=== PATIENT | male | born 1970 | race African-American/Black ===

== ENCOUNTER 2018-03-18 13:58 | Observation (INO) ==
--- NOTE | 2018-03-18 15:46 | ED ---
HPI General Chief complaint: Chest Pain Stated complaint: Chest Pain Time Seen by Provider: 03/18/18 15:35 Source: patient Mode of arrival: ambulatory Limitations: no limitations History of Present Illness HPI narrative: 47-year-old male with history of hypertension, seizure disorder on Dilantin, presents emergency department for evaluation of left-sided chest pain, acute onset about 4 hours ago. Patient states it waxes and wanes. There are no definite exacerbating or alleviating factors, however he states seems to happen more when he is walking. It does not radiate anywhere. He has associated shortness of breath and mild nausea. He was diaphoretic and lightheaded as well. States this does not happen him before. He has not been taking his Dilantin or his clonidine regularly. Has no other symptoms to report. Related Data Home Medications Medication Instructions Recorded Confirmed albuterol sulfate [Ventolin HFA] 2 puff INHALATION Q6H PRN 03/18/18 03/18/18 clonidine HCl 0.2 mg PO DAILY 03/18/18 03/18/18 duloxetine [Cymbalta] 60 mg PO DAILY 03/18/18 03/18/18 phenytoin sodium extended 30 mg PO Q12H 03/18/18 03/18/18 [Dilantin] Allergies Allergy/AdvReac Type Severity Reaction Status Date / Time No Known Allergies Allergy Unverified 03/18/18 15:50 Review of Systems Except as stated in HPI: all other systems reviewed are negative PMFSH History History Provided By: Patient Medical History Medical History Anxiety (Acute) Epilepsy (Acute) HTN (hypertension) (Acute) Seizure (Acute) Surgical History Surgical History H/O foot surgery (Acute) Social History Social History Substance History: No History of Abuse Second Hand Smoke Exposure: No Smoking Status: Former smoker How Often Do You Have a Drink Containing Alcohol: Monthly or less Recent Travel in [place] within the Last 8 Weeks: No Recent Out of Country Travel within the Last 8 Weeks: No Exam Narrative Exam Narrative: GENERAL: Well-nourished male patient, in no acute distress. SKIN: Focused skin assessment warm/dry. HEAD: Atraumatic. Normocephalic. EYES: Pupils equal and round. No scleral icterus. No injection or drainage. ENT: No nasal bleeding or discharge. Mucous membranes pink and moist. NECK: Trachea midline. No JVD. CARDIOVASCULAR: Regular rate and rhythm. RESPIRATORY: No accessory muscle use. Diminished, likely due to girth, otherwise clear to auscultation. Breath sounds equal bilaterally. GASTROINTESTINAL: Abdomen soft, non-tender, nondistended. Hepatic and splenic margins not palpable. MUSCULOSKELETAL: No obvious deformities. No clubbing. No cyanosis. No edema. NEUROLOGICAL: Awake and alert. No obvious cranial nerve deficits. Motor grossly within normal limits. Normal speech. PSYCHIATRIC: Appropriate mood and affect; insight and judgment normal. Course Initial Documented Vital Signs Temperature 98.5 F 03/18/18 14:29 Pulse Rate 94 H 03/18/18 14:29 Respiratory Rate 18 03/18/18 14:29 Blood Pressure 173/102 H 03/18/18 14:29 Pulse Oximetry 97 03/18/18 14:29 Last Documented Vital Signs Temperature 98.0 F 03/19/18 07:11 Pulse Rate 87 03/19/18 07:11 Respiratory Rate 18 03/19/18 07:11 Blood Pressure 164/100 H 03/19/18 07:11 Pulse Oximetry 98 03/19/18 07:11 Medical Decision Making RY Attestation RY supervised visit: Yes Attestation: I, Dr. Holland, have reviewed the advance practice practitioner's documentation and am in agreement, met with the patient face to face, made the diagnosis, and the medical decision making was done by me. *My assessment and Findings: She came in for chest pain evaluation. He does have risk factors., Was significantly hypertensive. Workup here does not yield anything emergent. He will be a 23 hour observation in the chest pain center to rule out cardiac cause of his symptoms. MDM Narrative Medical decision making narrative: 47-year-old male presents emergency department for evaluation of chest pain, acute onset 4 hours ago. Patient appears well. He is quite hypertensive and he did not take his clonidine today. He will be given a dose of this year. Patient will also be bolused with Dilantin as he is subtherapeutic and has been noncompliant with that medication as well.And observation. Initial lab work is reassuring. Troponin is less than 0.02. I discussed the patient my attending physician. We will place him in the chest pain center for further evaluation Differential Diagnosis Differential Diagnosis: ACS versus chest wall pain versus anxiety versus indigestion versus hypertensive urgency Lab Data Result diagrams: 03/18/18 15:20 03/18/18 06:54 Lab Results 03/18/18 03/18/18 03/18/18 Range/Units 06:54 06:54 15:20 WBC 8.4 (4.0-11.0) th/mm3 RBC 4.58 (4.50-5.90) mil/mm3 Hgb 13.5 (13.0-17.0) gm/dL Hct 40.2 (39.0-51.0) % MCV 87.8 (80.0-100.0) fL MCH 29.4 (27.0-34.0) pg MCHC 33.5 (32.0-36.0) % RDW 14.5 (11.6-17.2) % Plt Count 175 (150-450) th/mm3 MPV 9.8 (7.0-11.0) fL Neut % (Auto) 72.1 H (16.0-70.0) % Lymph % (Auto) 19.5 (9.0-44.0) % [place] % (Auto) 6.1 (0.0-8.0) % Eos % (Auto) 2.0 (0.0-4.0) % Baso % (Auto) 0.3 (0.0-2.0) % Neut # (Auto) 6.1 (1.8-7.7) th/mm3 Lymph # (Auto) 1.6 (1.0-4.8) th/mm3 [place] # (Auto) 0.5 (0.0-0.9) th/mm3 Eos # (Auto) 0.2 (0.0-0.4) th/mm3 Baso # (Auto) 0.0 (0.0-0.2) th/mm3 WBC Differential . Differential Comment Auto diff final PT (9.8-11.6) sec INR Ratio APTT (24.3-30.1) sec Sodium 142 (136-145) meq/L Potassium 4.0 (3.5-5.1) meq/L Chloride 108 H (98-107) meq/L Carbon Dioxide 25.3 (21.0-32.0) meq/L Anion Gap 9 (5-15) meq/L BUN 19 H (7-18) mg/dL Creatinine 1.26 (0.60-1.30) mg/dL Estimated GFR 61 L (>89) mL/min Random Glucose 78 (74-106) mg/dL Calcium 9.4 (8.5-10.1) mg/dL Total Creatine Kinase 218 (39-308) U/L CK-MB (CK-2) 1.2 (0.5-3.6) ng/mL Troponin I Less than 0.02 L (0.02-0.05) ng/mL Phenytoin (10.0-20.0) mcg/mL 03/18/18 03/18/18 03/18/18 Range/Units 16:09 16:30 18:05 WBC (4.0-11.0) th/mm3 RBC (4.50-5.90) mil/mm3 Hgb (13.0-17.0) gm/dL Hct (39.0-51.0) % MCV (80.0-100.0) fL MCH (27.0-34.0) pg MCHC (32.0-36.0) % RDW (11.6-17.2) % Plt Count (150-450) th/mm3 MPV (7.0-11.0) fL Neut % (Auto) (16.0-70.0) % Lymph % (Auto) (9.0-44.0) % [place] % (Auto) (0.0-8.0) % Eos % (Auto) (0.0-4.0) % Baso % (Auto) (0.0-2.0) % Neut # (Auto) (1.8-7.7) th/mm3 Lymph # (Auto) (1.0-4.8) th/mm3 [place] # (Auto) (0.0-0.9) th/mm3 Eos # (Auto) (0.0-0.4) th/mm3 Baso # (Auto) (0.0-0.2) th/mm3 WBC Differential Differential Comment PT 11.1 (9.8-11.6) sec INR 1.1 Ratio APTT 24.3 (24.3-30.1) sec Sodium (136-145) meq/L Potassium (3.5-5.1) meq/L Chloride (98-107) meq/L Carbon Dioxide (21.0-32.0) meq/L Anion Gap (5-15) meq/L BUN (7-18) mg/dL Creatinine (0.60-1.30) mg/dL Estimated GFR (>89) mL/min Random Glucose (74-106) mg/dL Calcium (8.5-10.1) mg/dL Total Creatine Kinase (39-308) U/L CK-MB (CK-2) (0.5-3.6) ng/mL Troponin I Less than 0.02 L (0.02-0.05) ng/mL Phenytoin Less than 0.4 L (10.0-20.0) mcg/mL 03/18/18 Range/Units 21:25 WBC (4.0-11.0) th/mm3 RBC (4.50-5.90) mil/mm3 Hgb (13.0-17.0) gm/dL Hct (39.0-51.0) % MCV (80.0-100.0) fL MCH (27.0-34.0) pg MCHC (32.0-36.0) % RDW (11.6-17.2) % Plt Count (150-450) th/mm3 MPV (7.0-11.0) fL Neut % (Auto) (16.0-70.0) % Lymph % (Auto) (9.0-44.0) % [place] % (Auto) (0.0-8.0) % Eos % (Auto) (0.0-4.0) % Baso % (Auto) (0.0-2.0) % Neut # (Auto) (1.8-7.7) th/mm3 Lymph # (Auto) (1.0-4.8) th/mm3 [place] # (Auto) (0.0-0.9) th/mm3 Eos # (Auto) (0.0-0.4) th/mm3 Baso # (Auto) (0.0-0.2) th/mm3 WBC Differential Differential Comment PT (9.8-11.6) sec INR Ratio APTT (24.3-30.1) sec Sodium (136-145) meq/L Potassium (3.5-5.1) meq/L Chloride (98-107) meq/L Carbon Dioxide (21.0-32.0) meq/L Anion Gap (5-15) meq/L BUN (7-18) mg/dL Creatinine (0.60-1.30) mg/dL Estimated GFR (>89) mL/min Random Glucose (74-106) mg/dL Calcium (8.5-10.1) mg/dL Total Creatine Kinase 187 (39-308) U/L CK-MB (CK-2) (0.5-3.6) ng/mL Troponin I Less than 0.02 L (0.02-0.05) ng/mL Phenytoin (10.0-20.0) mcg/mL Imaging Data Radiologist's impression: Chest X-Ray 03/18/18 15:57 CONCLUSION: 1. Minimal left basilar airspace disease, likely atelectasis. Discharge Plan Discharge Disposition Patient Disposition: 30 Still Patient Discharge Condition Condition: Stable Discharge Details Diagnosis: Chest pain, Hypertension Physicians Team ED Provider: Brock Holland ED Midlevel Provider: Fatuma Zhao Primary Care Provider: Primary Care Maya Martinez Attending Provider: Cade Vaca ED Status: Left Department Discharge Information Discharge Date/Time: 03/18/18 19:42
[2018-03-18 16:11] LABS: Baso % (Auto) 0.3 % (0.0-2.0); Eos # (Auto) 0.2 th/mm3 (0.0-0.4); Hematocrit 40.2 % (39.0-51.0); Hemoglobin 13.5 gm/dL (13.0-17.0); Lymph # (Auto) 1.6 th/mm3 (1.0-4.8); Lymph % (Auto) 19.5 % (9.0-44.0); Mean Corpuscular HGB Conc 33.5 % (32.0-36.0); Mean Corpuscular Hemoglobin 29.4 pg (27.0-34.0); Mean Corpuscular Volume 87.8 fL (80.0-100.0); Mean Platelet Volume 9.8 fL (7.0-11.0); Mono # (Auto) 0.5 th/mm3 (0.0-0.9); Mono % (Auto) 6.1 % (0.0-8.0); Neut # (Auto) 6.1 th/mm3 (1.8-7.7); Neut % (Auto) 72.1 % (16.0-70.0); Platelet Count 175 th/mm3 (150-450); Red Blood Count 4.58 mil/mm3 (4.50-5.90); Red Cell Distribution Width 14.5 % (11.6-17.2); White Blood Count 8.4 th/mm3 (4.0-11.0)
[2018-03-18 16:31] LABS: Anion Gap 9 meq/L (5-15); Blood Urea Nitrogen 19 mg/dL (7-18); Calcium 9.4 mg/dL (8.5-10.1); Carbon Dioxide 25.3 meq/L (21.0-32.0); Chloride 108 meq/L (98-107); Glomerular Filtration Rate 61 mL/min (>89); Glucose,Random 78 mg/dL (74-106); Sodium 142 meq/L (136-145)
[2018-03-18 16:33] LABS: Creatine Kinase 218 U/L (39-308)
--- NOTE | 2018-03-18 16:35 | XR ---
EXAM DATE: 03/18/2018 4:22 PM EDT AGE/SEX: 47 years / Male INDICATIONS: Mid-left chest pain. CLINICAL DATA: This is the patient's initial encounter. Patient reports that signs and symptoms have been present for 1 day and indicates a pain score of 4/10. MEDICAL/SURGICAL HISTORY: Asthma. None. COMPARISON: No prior exams available for comparison. FINDINGS: Minimal left basilar airspace disease. The cardiomediastinal contours are unremarkable given the degr ee of lung expansion and portable technique. Osseous structures are intact. CONCLUSION: 1. Minimal left basilar airspace disease, likely atelectasis. Electronically signed by: Karthik Conde MD 03/18/2018 4:34 PM EDT
[2018-03-18 16:36] LABS: Activated Partial Thrombo Time 24.3 sec (24.3-30.1); INR 1.1 Ratio; Prothrombin Time 11.1 sec (9.8-11.6)
[2018-03-18 16:50] LABS: Creatine Kinase MB 1.2 ng/mL (0.5-3.6)
[2018-03-18] MEDS ORDERED: Phenytoin Inj 1,000 MG in Sodium Chlor 0.9% Inj 100 ML IV.SIG ONE (17:22)
[2018-03-18] MEDS ORDERED: Acetaminophen 500 MG Tablet PO PRN (18:42)
[2018-03-18 18:54] VITALS: O2SAT 98
[2018-03-18 22:13] LABS: Creatine Kinase 187 U/L (39-308)
[2018-03-19] MEDS ORDERED: Aspirin 325 MG Tablet PO SCH (09:00)
[2018-03-19] MEDS ORDERED: RESP: Albuterol Concentrated 2.5 MG/0.5 ML Neb NEB PRN (09:17)
--- NOTE | 2018-03-19 09:28 | P.HPCA ---
History of Present Illness Primary Care Physician: No Primary Care Physician Chief Complaint: chest pain History of Present Illness: 47-year-old male with history of hypertension, epilepsy, asthma, and anxiety presents the emergency room for further evaluation of chest pain. Onset 11 AM. Location left anterior chest. Characterized as sharp, "like getting punched. " No radiation. Severity 8/10. Associated symptoms included nausea, dyspnea, diaphoresis. Duration 5-10 minutes. Since initial discomfort chest pain has waxed and waned in intensity, denying any further chest pain after arriving to ER. Precipitating factors he relates to being outside in the heat. No known relieving factors. Recently moved from [place] to [place], is homeless, reports not being used to [place]'s heat and sun. No current chest discomfort. No past cardiac testing. No known CAD or past [place]. Family history noncontributory for early onset cardiovascular disease. States he ran out of his Dilantin recently. Last seizure one month ago. - Diagnosis (1) Atypical chest pain (2) Family history of epilepsy and other diseases of the nervous system (3) Hypertension Review of Systems All other systems reviewed negative except as stated in [facility]PI [facility] - History History Provided By: Patient - Medical History Medical History: Medical History (Last Reviewed 03/19/18 @ 09:23 by INOCENTE Austin) Anxiety Epilepsy HTN (hypertension) Seizure - Surgical History Surgical History: Surgical History (Last Reviewed 03/19/18 @ 09:23 by INOCENTE Austin) H/O foot surgery - Tobacco History Second Hand Smoke Exposure: No Tobacco Use In Past 30 Days: No Smoking Status: Former smoker - Alcohol History How Often Do You Have a Drink Containing Alcohol: Monthly or less - Substance Use History Substance History: No History of Abuse - Travel History Recent Travel in the [place] Within the Last 8 Weeks: No Recent Travel Out of the Country Within the Last 8 Weeks: No - Immunization History Tetanus Immunization: Unsure Hx Influenza Vaccine This Season: No Medications and Allergies Active Medications: Active Medications Acetaminophen (Tylenol) 500 mg PO Q4H PRN PRN Reason: HEADACHE Amlodipine Besylate (Norvasc) 5 mg PO DAILY [facility] Aspirin (Aspirin) 325 mg PO DAILY [facility] Last Admin: 03/19/18 08:21 Dose: 325 mg Nitroglycerin (Nitrostat Sl) 0.4 mg SL Q5M PRN PRN Reason: CHEST PAIN Nitroglycerin (Nitrostat Sl) 0.4 mg SL Q5M PRN PRN Reason: CHEST PAIN Ondansetron HCl (Zofran Inj) 4 mg IV.PUSH Q6H PRN PRN Reason: NAUSEA Sodium Chloride (Ns Flush) 2 ml IV.FLUSH UNSCH PRN PRN Reason: FLUSH AFTER USING IV ACCESS Sodium Chloride (Ns Flush) 2 ml IV.FLUSH BID [facility] Last Admin: 03/19/18 08:22 Dose: 2 ml Sodium Chloride (Ns Flush) 2 ml IV.FLUSH PRN PRN PRN Reason: FLUSH AFTER USING IV ACCESS Allergies Allergy/AdvReac Type Severity Reaction Status Date / Time No Known Allergies Allergy Unverified 03/18/18 15:50 Home Medications Medication Instructions Recorded Confirmed Type albuterol sulfate [Ventolin HFA] 2 puff INHALATION Q6H PRN 03/18/18 03/18/18 History clonidine HCl 0.2 mg PO DAILY 03/18/18 03/18/18 History duloxetine [Cymbalta] 60 mg PO DAILY 03/18/18 03/18/18 History phenytoin sodium extended 100 mg PO DAILY 03/18/18 03/19/18 History [Dilantin] Exam Vital signs: Vital Signs 03/18/18 14:29 03/18/18 14:36 03/18/18 16:15 Temperature 98.5 F Pulse Rate 94 H 90 Respiratory Rate 18 19 Blood Pressure 173/102 H 186/105 H Pulse Oximetry 97 100 99 03/18/18 16:22 03/18/18 16:24 03/18/18 17:29 Temperature Pulse Rate 83 90 Respiratory Rate 17 17 Blood Pressure 190/107 H Pulse Oximetry 95 95 98 03/18/18 18:36 03/18/18 19:42 03/18/18 20:00 Temperature 98.7 F Pulse Rate 94 H 77 Respiratory Rate 16 20 Blood Pressure 177/108 H 181/114 H Pulse Oximetry 100 03/18/18 23:20 18 03:29 03/19/18 07:11 Temperature 98.2 F 98.1 F 98.0 F Pulse Rate 86 85 87 Respiratory Rate 18 18 18 Blood Pressure 179/91 H 176/100 H 164/100 H Pulse Oximetry 97 98 98 03/19/18 07:36 Temperature Pulse Rate 91 H Respiratory Rate Blood Pressure Pulse Oximetry Intake & Output 03/18/18 03/19/18 03/19/18 18:59 06:59 18:59 Intake Total 120 / 120 Balance 120 / 120 Weight 290 kg 290 kg Intake: IV 120 / 120 Dilantin Inj 1,000 MG In NS Inj 120 / 120 100 ML @ 288 mls/hr IV.SIG ONCE ONE Rx#:[id number] Other: Date of Last Bowel Movement 03/19/18 Weight On Admission 290 kg Narrative: GENERAL: Alert WN, WD, NAD, pleasant, obese -[place] male HEAD: NC, AT EYES: Sclera clear, conjunctiva without injection NECK: Supple, no masses, trachea midline CV: RRR, without murmur, rub, gallop, no JVD. No carotid bruits. Left anterior chest pain reproducible with palpation. RESP: Clear lungs wheezing throughout bilateral, no crackles, rhonchi, symmetrical chest rise, nonlabored, able to speak in full sentences ABD: Soft, NT, ND, no masses, positive bowel tones EXT: Pulses +2x4, no dependent edema MS: Normal tone x4 extremities, nontender, no obvious deformities, full range of motion NEURO: CN II through CN XII grossly intact, motor strength 5/5, gait WNL PSYCH: A+Ox3, pleasant affect, appropriate speech, mood, insight and judgment SKIN: Normal turgor, normal texture, no lesions, no rashes, brisk cap refill, even hair distribution, dry lower extremities Results 03/18/18 15:20 03/18/18 06:54 Cardiac Enzymes 03/18/18 03/18/18 03/18/18 Range/Units 06:54 06:54 18:05 CK-MB (CK-2) 1.2 (0.5-3.6) ng/mL Troponin I Less than 0.02 L Less than 0.02 L (0.02-0.05) ng/mL 03/18/18 Range/Units 21:25 CK-MB (CK-2) (0.5-3.6) ng/mL Troponin I Less than 0.02 L (0.02-0.05) ng/mL Coagulation 03/18/18 Range/Units 16:09 PT 11.1 (9.8-11.6) sec APTT 24.3 (24.3-30.1) sec CBC 03/18/18 Range/Units 15:20 WBC 8.4 (4.0-11.0) th/mm3 RBC 4.58 (4.50-5.90) mil/mm3 Hgb 13.5 (13.0-17.0) gm/dL Hct 40.2 (39.0-51.0) % Plt Count 175 (150-450) th/mm3 Neut # (Auto) 6.1 (1.8-7.7) th/mm3 Lymph # (Auto) 1.6 (1.0-4.8) th/mm3 [place] # (Auto) 0.5 (0.0-0.9) th/mm3 Eos # (Auto) 0.2 (0.0-0.4) th/mm3 Baso # (Auto) 0.0 (0.0-0.2) th/mm3 Comprehensive Metabolic Panel 03/18/18 Range/Units 06:54 Sodium 142 (136-145) meq/L Potassium 4.0 (3.5-5.1) meq/L Chloride 108 H (98-107) meq/L Carbon Dioxide 25.3 (21.0-32.0) meq/L BUN 19 H (7-18) mg/dL Creatinine 1.26 (0.60-1.30) mg/dL Calcium 9.4 (8.5-10.1) mg/dL Intake and Output 03/18/18 03/19/18 03/19/18 22:59 06:59 14:59 Intake Total 120 / 120 Balance 120 / 120 Intake: IV 120 / 120 Dilantin Inj 1,000 MG In NS Inj 120 / 120 100 ML @ 288 mls/hr IV.SIG ONCE ONE Rx#:[id number] Other: Date of Last Bowel Movement 03/19/18 Weight 290 kg Weight On Admission 290 kg EKG interpretations - EKG EKG results cardiology: sinus rhythm, normal axis, normal QRS Caprini VTE Risk Assessment Caprini VTE Risk Assessment: No/Low Risk (score <= 1) Caprini Risk Assessment Model: Point Value = 1 Point Value = 2 Point Value = 3 Point Value = 5 Age 41-60 Minor surgery BMI > 25 kg/m2 Swollen legs Varicose veins or History of unexplained or recurrent spontaneous Oral contraceptives or hormone replacement Sepsis (< 1 month) Serious lung disease, including pneumonia (< 1 month) Abnormal pulmonary function Acute myocardial infarction Congestive heart failure (< 1 month) History of inflammatory bowel disease Medical patient at bed rest Age 61-74 Arthroscopic surgery Major open surgery (> 45 min) Laparoscopic surgery (> 45 min) Malignancy Confined to bed (> 72 hours) Immobilizing plaster cast Central venous access Age >= 75 History of VTE Family history of VTE Factor V Leiden Prothrombin [id number] Lupus anticoagulant Anticardiolipin antibodies Elevated serum homocysteine Heparin-induced thrombocytopenia Other congenital or acquired thrombophilia Stroke (< 1 month) Elective arthroplasty Hip, pelvis, or leg fracture Acute spinal cord injury (< 1 month) Prophylaxis Regimen: Total Risk Factor Score Risk Level Prophylaxis Regimen 0-1 Low Early ambulation 2 Moderate Order ONE of the following: *Sequential Compression Device (SCD) *Heparin 5000 units SQ BID 3-4 Higher Order ONE of the following medications: *Heparin 5000 units SQ TID *Enoxaparin/Lovenox 40 mg SQ daily (WT < 150 kg, CrCl > 30 mL/min) *Enoxaparin/Lovenox 30 mg SQ daily (WT < 150 kg, CrCl > 10-29 mL/min) *Enoxaparin/Lovenox 30 mg SQ BID (WT < 150 kg, CrCl > 30 mL/min) AND/OR *Sequential Compression Device (SCD) 5 or more Highest Order ONE of the following medications: *Heparin 5000 units SQ TID (Preferred with Epidurals) *Enoxaparin/Lovenox 40 mg SQ daily (WT < 150 kg, CrCl > 30 mL/min) *Enoxaparin/Lovenox 30 mg SQ daily (WT < 150 kg, CrCl > 10-29 mL/min) *Enoxaparin/Lovenox 30 mg SQ BID (WT < 150 kg, CrCl > 30 mL/min) AND *Sequential Compression Device (SCD) Assessment and Plan - Assessment (1) Atypical chest pain Code(s): R07.89 - Other chest pain Status: Acute Plan: Admitted chest pain center. ACS ruled out 3 sets of EKGs and cardiac enzymes. Will be seen evaluated by Dr. Cade Vaca. Likely will proceed with exercise cardiac testing later this morning after evaluation by tuck pointer. Patient agreeable to plan of care (2) Family history of epilepsy and other diseases of the nervous system Code(s): Z82.0 - Family history of epilepsy and other diseases of the nervous system Status: Chronic Plan: Phenytoin level less than 0.4, phenytoin IV dosing given in ER. Restart home dosing. Reports having plenty of Dilantin at home. Instructed on importance of medication compliance. (3) Hypertension Code(s): I10 - Essential (primary) hypertension Status: Chronic Plan: Continue to monitor. Amlodipine 5 mg 1 dose now. Discussed changing his clonidine to amlodipine daily. Agreeable to plan of care. Further disposition to follow. H&P: Quality - VTE Deep Vein Thrombosis/Pulmonary Embolism Present on Admission: No (3) Hypertension Qualifiers: Hypertension type: essential hypertension Qualified Code(s): I10 - Essential (primary) hypertension
[2018-03-19] MEDS ORDERED: amLODIPine 5 MG Tablet PO SCH (09:30)
--- NOTE | 2018-03-19 11:10 | TR ---
Date Performed: 03/19/2018 Time Performed: 10:41:28 DOCTOR: Cade Vaca DRUG LIST: CLINICAL HISTORY: REASON FOR TEST: Chest pain REASON FOR ENDING: OBSERVATION: CONCLUSION: Mina protocol completed. Stopped sec to leg fatigue. and reaching target heart rate . Maximum IA=876 Target HR Achieved=85.0% Maximum TE=243/100 Total Exercise Time=7:00. No reprod ches t discomfort. No ectopy. No st t segment changes. Good exercise tolerance. Hypertensive bp response. Recovery quick and unremarkable. COMMENTS: Conclusion: Normal treadmill exercise. No evidence of ischemia.
--- NOTE | 2018-03-19 11:58 | ECG ---
Date Performed: 03/18/2018 Time Performed: 21:15:11 PTAGE: 47 years EKG: Sinus rhythm NORMAL ECG PREVIOUS TRACING : 03/18/2018 19.29 Since previous tracing, no significant change noted DOCTOR: Cade Vaca Interpretating Date/Time 03/19/2018 11:58:10
--- NOTE | 2018-03-19 12:03 | ECG ---
Date Performed: 03/18/2018 Time Performed: 19:29:41 PTAGE: 47 years EKG: Sinus rhythm NORMAL ECG Since PREVIOUS TRACING , no significant change noted DOCTOR: Cade Vaca Interpretating Date/Time 03/19/2018 12:01:19
--- NOTE | 2018-03-19 12:09 | ECG ---
Date Performed: 03/18/2018 Time Performed: 15:19:45 PTAGE: 47 years EKG: Sinus rhythm NORMAL ECG INTERPRETATION BASED ON A DEFAULT AGE OF 38 YEARS NO PREVIOUS TRACING DOCTOR: Cade Vaca Interpretating Date/Time 03/19/2018 12:08:39
[2018-03-22 18:12] VITALS: BP 168/110; PULSE 88; RESP 22; TEMP 98.1
== END 2018-03-19 13:35 | disposition home or self-care (01) ==
LOC: NEDA 13:58 → NEPC 13:58 → NEPFCDU 13:58 → NEDA 19:42 → NEPFCDU 19:45